=== PATIENT | male | born 1935 | race Caucasian/White ===

== ENCOUNTER → 2017-02-08 | Outpatient (REF) | payer MEDICARE, OTHER ==
[2017-02-08 20:46] LABS: FREE T4 0.98 NG/DL (0.76-1.46)
== END ==
LOC: M LAB REF 16:34
PROVIDERS: ATTEND Internal Medicine Medical Oncology
DX: C43.9 Malignant melanoma of skin, unspecified (principal); Z79.899 Other long term (current) drug therapy

== ENCOUNTER 2017-02-20 12:38 | Inpatient (IN) | payer MEDICARE, OTHER ==
[~2017-02-20] VITALS: Ht 179.1 cm; Wt 95.7 kg
[2017-02-20] MEDS ORDERED: TAMSULOSIN (12:49)
[2017-02-20] MEDS ORDERED: PRED10TA PO (12:49)
[2017-02-20] MEDS ORDERED: ALBU83IN INH (12:49)
[2017-02-20] MEDS ORDERED: methylPREDNISolone INJ 125 MG/2 ML VIAL (J2930) IV ONE (13:15)
[2017-02-20] MEDS: IPRATROPIUM 0.5MG/ALBUTEROL 2.5MG INH SOL UD 3ML (DUONEB)(J7620) NEB PRN ×3 (13:22→13:57)
[2017-02-20 13:27] LABS: BASO % 0.2 % (0.0-1.0); EOS # 0.2 K/mm3 (0.0-0.50); EOS % 1.2 % (0.0-3.0); LARGE UNSTAINED CELL # 0.2 K/mm3 (0.0-0.4); LYMPH # 1.3 K/mm3 (1.5-4.5); LYMPH % 7.3 % (24.0-44.0); MEAN CORPUSCULAR HEMOGLOBIN 30.5 pg (27.0-33.0); MEAN CORPUSCULAR HGB CONC 33.8 g/dl (32.0-36.5); MEAN CORPUSCULAR VOLUME 90.2 fl (80.0-96.0); MONO # 0.9 K/mm3 (0.0-0.8); MONO % 5.6 % (0.0-5.0); NEUTROPHILS # 13.3 K/mm3 (1.8-7.7); NEUTROPHILS % 84.6 % (36.0-66.0); PLATELET COUNT, AUTOMATED 213 k/mm3 (150-450); RED CELL DISTRIBUTION WIDTH 13.4 % (11.5-14.5); WHITE BLOOD COUNT 15.7 K/mm3 (4.0-10.0)
[2017-02-20 13:53] LABS: ANION GAP 8 MEQ/L (8-16); BLOOD UREA NITROGEN 23 MG/DL (7-18); CALCIUM LEVEL 8.3 MG/DL (8.8-10.2); CARBON DIOXIDE LEVEL 24 MEQ/L (21-32); CHLORIDE LEVEL 104 MEQ/L (98-107); GLOMERULAR FILTRATION RATE 51.8 (>35); GLUCOSE, FASTING 107 MG/DL (83-110); SODIUM LEVEL 136 MEQ/L (136-145)
[2017-02-20 13:58] LABS: ALBUMIN/GLOBULIN RATIO 0.77 (1.00-1.93); BILIRUBIN,DIRECT 0.2 MG/DL (0.0-0.2); BILIRUBIN,TOTAL 0.8 MG/DL (0.2-1.0); TOTAL PROTEIN 6.9 GM/DL (6.4-8.2)
--- NOTE | 2017-02-20 14:27 | REP ---
Clinical: Dyspnea. Cough. Technique: PA and lateral. Comparison: 03/02/2013. Findings: Mediastinum and cardiac silhouette are stable. The lung turcios demonstrate diffuse chronic interstitial changes, including COPD and emphysematous disease with bibasilar scarring and chronic right pleuroparenchymal changes. Superimposed acute process cannot be excluded. No pneumothorax. Skeletal structures intact. Impression: Chronic changes related to COPD/emphysematous disease, scattered fibrosis and scarring as well as pleural-based scarring in the right lower hemithorax. Superimposed acute process cannot be excluded. Signed by Chandra Malik MD 02/20/2017 02:18 P
[2017-02-20] MEDS ORDERED: ALBUTEROL SULFATE 2.5 MG/0.5 ML INH NEB SOLN NEB PRN (14:45)
[2017-02-20] MEDS ORDERED: METOCLOPRAMIDE INJ 10MG/2ML VIAL (J2765) IV PRN (14:45)
[2017-02-20] MEDS ORDERED: BISACODYL 10 MG SUPP PR PRN (14:45)
[2017-02-20] MEDS ORDERED: KEYT1SOL IV (15:00)
[2017-02-20] MEDS ORDERED: PROBCAP4 PO (15:00)
[2017-02-20] MEDS ORDERED: PRESCAP6 PO (15:00)
[2017-02-20] MEDS ORDERED: LORA10TA2 PO (15:00)
[2017-02-20] MEDS ORDERED: FLOM5CAP PO (15:00)
[2017-02-20] MEDS ORDERED: GLUCTAB6 PO (15:00)
[2017-02-20] MEDS ORDERED: FISH1000 PO (15:00)
[2017-02-20] MEDS ORDERED: AZITHROMYCIN INJ 500 MG, VIAL MATE ADAPTER 1 EACH in D5W 250 ML IV SCH (15:00)
[2017-02-20] MEDS ORDERED: cefTRIAXone SOD 2 GM in D5W MINI-BAG PLUS 50 ML IV SCH (16:00)
--- NOTE | 2017-02-20 16:40 | REP ---
Clinical: Dyspnea and cough. Findings: Right lower lobe consolidation with air bronchograms is appreciated with associated pleural reaction. Significant mediastinal and hilar adenopathy noted. Advanced chronic COPD and emphysematous changes with biapical and scattered scarring. Thoracic aorta without aneurysm. Heart and pericardium normal for age. Surrounding musculoskeletal structures demonstrate age-related degenerative changes. Limited evaluation of the upper abdomen demonstrates renal hypodensities likely representing cysts. Impression: 1. Moderate right lower lobe consolidation with air bronchograms as well as associated pleural reaction and significant adenopathy. Follow-up to resolution is recommended. Differential diagnosis includes acute pneumonia as well as neoplasm. 2. Advanced COPD and emphysematous changes with biapical and scattered scarring. 3. Renal hypodensities likely representing cysts may be followed by ultrasound. Signed by Chandra Malik MD 02/20/2017 04:32 P
[2017-02-20 17:08] VITALS: BP 140/67
[2017-02-20] MEDS: PANTOPRAZOLE 40MG TAB (PROTONIX) PO SCH (17:22)
--- NOTE | 2017-02-20 20:08 | ECGEPIP ---
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
[2017-02-20] MEDS: ENOXAPARIN 30 MG/0.3 ML SYR (J1650) SC SCH (20:21)
[2017-02-20] MEDS: TAMSULOSIN 0.4 MG CAP PO SCH (20:22)
[2017-02-20] MEDS: methylPREDNISolone INJ 40 MG/1 ML VIAL (J2920) IV SCH (20:22)
[2017-02-20] MEDS: SENOKOT S TAB PO SCH (20:22)
[2017-02-20] MEDS: IPRATROPIUM 0.5MG/ALBUTEROL 2.5MG INH SOL UD 3ML (DUONEB)(J7620) NEB SCH (20:28)
[2017-02-20 22:00] VITALS: BP 130/62
[2017-02-20] MEDS ORDERED: guaiFENesin ER 600 MG TAB PO ONE (22:00)
--- NOTE | 2017-02-20 22:40 | REPUSA ---
Clinical history: Shortness of breath. Comparison: None. Findings: The mediastinum and cardiac silhouette are within normal limits. There is a right lower lob e infiltrate and pleural effusion. The osseous structures and soft tissues are unremarkable. Impression: Right lower lobe infiltrate and pleural effusion.
[2017-02-21] MEDS: IPRATROPIUM 0.5MG/ALBUTEROL 2.5MG INH SOL UD 3ML (DUONEB)(J7620) NEB SCH ×4 (01:18→20:53)
[2017-02-21] MEDS: methylPREDNISolone INJ 40 MG/1 ML VIAL (J2920) IV SCH ×4 (02:03→20:58)
[2017-02-21 06:00] VITALS: BP 132/67
[2017-02-21] MEDS: LACTOBACILLUS ACIDOPHILUS CAP (BACID) PO SCH (08:34)
[2017-02-21] MEDS: AZITHROMYCIN 250 MG TAB PO SCH (08:34)
[2017-02-21] MEDS: PANTOPRAZOLE 40MG TAB (PROTONIX) PO SCH (08:35)
[2017-02-21] MEDS: LORATADINE 10 MG TAB PO SCH (08:35)
[2017-02-21] MEDS: SENOKOT S TAB PO SCH ×2 (08:35→20:59)
[2017-02-21] MEDS: guaiFENesin ER 600 MG TAB PO SCH ×2 (08:35→20:59)
[2017-02-21 09:32] LABS: CALCIUM LEVEL 8.3 MG/DL (8.8-10.2); CREATININE FOR GFR 1.32 MG/DL (0.70-1.30); GLOMERULAR FILTRATION RATE 55.4 (>35); POTASSIUM SERUM 3.8 MEQ/L (3.5-5.1)
[2017-02-21 09:48] LABS: MEAN CORPUSCULAR HEMOGLOBIN 30.3 pg (27.0-33.0); MEAN CORPUSCULAR HGB CONC 32.8 g/dl (32.0-36.5); MEAN CORPUSCULAR VOLUME 92.4 fl (80.0-96.0); RED CELL DISTRIBUTION WIDTH 13.1 % (11.5-14.5); WHITE BLOOD COUNT 14.6 K/mm3 (4.0-10.0)
--- NOTE | 2017-02-21 12:41 | HPE ---
DATE OF ADMISSION: 02/20/2017 PRIMARY CARE PROVIDER: Dr. Nino Rosario ONCOLOGIST: Dr. Janneth Zheng CHIEF COMPLAINT: Increasing shortness of breath and cough for 4 days. PAST MEDICAL HISTORY: 1. 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 2. Chronic obstructive pulmonary disease (COPD), on home oxygen and intermittent steroids. 3. Chronic hypoxic respiratory failure. 4. Benign prostatic hypertrophy (BPH). 5. Seasonal allergies. 6. Hyperlipidemia. 7. Osteoarthritis. HISTORY OF PRESENT ILLNESS: This is an 81-year-old male who is from [place]; however, is up here in [facility] during the summer, who was diagnosed with malignant melanoma in September 2016 and started on , involvement of left axillary lymph node, started on chemotherapy in December 2016 down in [place] and continued with chemotherapy after he moved here under Dr. Janneth Zheng' care. He last got his chemotherapy with Keytruda on 02/15/2017. From 02/16/2017, he started feeling a little congested and short of breath, which worsened over the next 4 days and causing him to require more nebulizers than his usual and causing him to use his oxygen throughout the day. He usually uses it only during the night. Today, he was feeling very tight, congested, difficulty with lots of difficulty in breathing, so came to the emergency room for evaluation. In the emergency department (ED), the patient had chest x-ray done, which showed chronic changes of COPD and emphysema, scattered fibrosis, and scarring in the right lower hemithorax, superimposed acute process could not be ruled out. He also had a white count up to 15.7 and elevated C-reactive protein (CRP) of 25.3. Dr. Janneth Zheng was consulted from the ED, and it was felt that the patient's symptoms could be related to his COPD exacerbation versus a pneumonitis related to Keytruda. So, the patient is being admitted to the hospitalist service for COPD exacerbation versus pneumonitis related to chemotherapy. Past medical history also included chronic kidney disease stage III. Past medical history also includes a right lower lobe lung cancer, status post right lower lobe lobectomy in 2003. PAST SURGICAL HISTORY: 1. Bilateral hip replacements. 2. Surgery for malignant melanoma on the back in September 2016. 3. Right lower lobe lobectomy in 2004 for lung cancer. 4. 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 ALLERGIES: To FORMALDEHYDE. SOCIAL HISTORY: The patient does not smoke, abuse alcohol or recreational drugs. HOME MEDICATIONS: - loratadine 10 mg daily - lactobacillus one capsule by mouth daily - albuterol sulfate nebulizer solution every 4 hours as needed - prednisone 10 mg every other day - Flomax 0.4 mg daily - glucosamine one tablet by mouth twice a day - fish oil 1000 mg capsule twice a day - Keytruda - PreserVision AREDS one capsule by mouth twice a day FAMILY HISTORY: Nothing significant. RADIOLOGY: Chest x-ray as above reviewed. ASSESSMENT AND PLAN: This is an 81-year-old male admitted for chronic obstructive pulmonary disease exacerbation versus pneumonitis related to chemotherapy. PLAN: 1. Chronic obstructive pulmonary disease exacerbation. Will continue with nebulizers with albuterol and ipratropium. Will also give methylprednisone. Will continue with home oxygen. 2. Pneumonitis due to chemotherapy versus pneumonia. Will schedule the patient for a chest CT. Will continue with ceftriaxone and azithromycin for now. 3. Chronic hypoxic respiratory failure. Will continue with home oxygen. 4. Chronic kidney disease stage III. Will monitor creatinine. At base currently. 5. Benign prostatic hypertrophy. Will continue with Flomax. 6. Allergies. Will continue with loratadine. 7. Deep venous thrombosis (DVT) prophylaxis has been ordered. 8. Gastrointestinal (GI) prophylaxis has been ordered. 9. Malignant melanoma. Currently, on chemotherapy. Last dose received on 02/15/2017 with Keytruda. Follows with Dr. Janneth Zheng. No issues at this point.
[2017-02-21 14:00] VITALS: BP 136/62
[2017-02-21] MEDS: cefTRIAXone SOD 1 GM in D5W MINI-BAG PLUS 50 ML IV SCH (14:39)
--- NOTE | 2017-02-21 16:37 | IPNPDOC ---
Subjective Date Seen The patient was seen on 02/21/17. Subjective Chief Complaint/HPI The patient is a 81-year-old male admitted with a reason for visit of Copd Exacerbation. General: Denies: Chills, Night Sweats Constitutional: Denies: Chills, Fever Eyes: Denies: Pain, Vision change ENT: Denies: Head Aches, Ear Pain Skin: Denies: Rash, Lesions Pulmonary: Reports: Dyspnea, Cough Cardiovascular: Denies: Chest Pain, Palpitations Gastrointestinal: Denies: Nausea, Vomiting Genitourinary: Denies: Dysuria, Frequency Hematologic: Denies: Bruising, Bleeding Excessively Objective Physical Examination General Exam: Positive: Alert, Cooperative, No Acute Distress ENT Exam: Positive: Atraumatic, Mucous membr. moist/pink Neck Exam: Negative: JVD Chest Exam: Positive: Wheezing, Diminished, Negative: Rales Heart Exam: Positive: Rate Normal, Normal S1, Normal S2 Abdomen Exam: Positive: Tenderness, Negative: Soft Extremity Exam: Negative: Tenderness, Swelling Assessment /Plan Plan/VTE VTE Prophylaxis Ordered?: Yes Plan Chronic obstructive pulmonary disease exacerbation CT Chest noted Continue with nebulizers with albuterol and ipratropium Cont methylprednisone. Cont Rocephin, Azithromycin Continue with home oxygen. Will continue to monitor the patient's respiratory status Pneumonitis due to chemotherapy versus pneumonia. Continue with ceftriaxone and azithromycin, Solumedrol as ordered Hx of Malignant melanoma s/p 4 round of chemotherapy on 02/15/2017 with Keytruda. Follows with Dr. Janneth Zheng. Chronic kidney disease stage III Serum Cr at Baseline Benign prostatic hypertrophy Continue with Flomax. Allergies Continue with loratadine. Deep venous thrombosis (DVT) prophylaxis SC Lovenox VS, I&O, 24H, Fishbone Vital Signs/I&O Vital Signs Date Time Temp Pulse Resp B/P (MAP) Pulse Ox O2 Delivery O2 Flow Rate FiO2 02/21/17 14:00 98.5 95 22 136/62 (86) 93 Nasal Cannula 1.0 I&O- Last 24 Hours up to 6 AM 02/21/17 06:00 Intake Total 895 ml Output Total 1225 ml Balance -330 ml Laboratory Data 24H LABS Laboratory Tests 2 02/21/17 09:05: Anion Gap 13, Glomerular Filtration Rate 55.4, Blood Urea Nitrogen 28H, Creatinine 1.32H, Sodium Level 141, Potassium Level 3.8, Chloride Level 106, Carbon Dioxide Level 22, Calcium Level 8.3L CBC/BMP Laboratory Tests 02/21/17 09:05 Red Blood Count 3.94 L, Mean Corpuscular Volume 92.4, Mean Corpuscular Hemoglobin 30.3, Mean Corpuscular Hemoglobin Concent 32.8, Red Cell Distribution Width 13.1, Calcium Level 8.3 L Microbiology Microbiology 02/20/17 Blood Culture, Received Pending 02/20/17 Blood Culture - Preliminary, Resulted No growth after 24 hours . All specim... 02/20/17 Gram Stain - Final, Resulted 02/20/17 Sputum Culture, Resulted Pending 02/20/17 Respiratory Virus Panel (PCR) (DIA) - Final, Complete YONATAN STEVENS MD February 21, 2017 16:37
[2017-02-21] MEDS: ENOXAPARIN 30 MG/0.3 ML SYR (J1650) SC SCH (20:59)
[2017-02-21] MEDS: TAMSULOSIN 0.4 MG CAP PO SCH (21:00)
[2017-02-21 22:00] VITALS: BP 132/56
[2017-02-22] MEDS: IPRATROPIUM 0.5MG/ALBUTEROL 2.5MG INH SOL UD 3ML (DUONEB)(J7620) NEB SCH ×4 (01:03→19:11)
[2017-02-22] MEDS: methylPREDNISolone INJ 40 MG/1 ML VIAL (J2920) IV SCH ×3 (02:08→20:13)
[2017-02-22 06:00] VITALS: BP 106/52
[2017-02-22] MEDS: ACETAMINOPHEN TAB 650MG DOSE (2X325MG) PO PRN ×2 (06:44→16:37)
[2017-02-22 07:35] LABS: MEAN CORPUSCULAR HEMOGLOBIN 30.2 pg (27.0-33.0); MEAN CORPUSCULAR HGB CONC 33.2 g/dl (32.0-36.5); RED CELL DISTRIBUTION WIDTH 13.4 % (11.5-14.5); WHITE BLOOD COUNT 20.2 K/mm3 (4.0-10.0)
[2017-02-22 07:51] LABS: ALBUMIN 2.5 GM/DL (3.2-5.2); ALBUMIN/GLOBULIN RATIO 0.58 (1.00-1.93); BILIRUBIN,TOTAL 0.2 MG/DL (0.2-1.0); CALCIUM LEVEL 8.1 MG/DL (8.8-10.2); CREATININE FOR GFR 1.4 MG/DL (0.70-1.30); GLOMERULAR FILTRATION RATE 51.8 (>35); MAGNESIUM LEVEL 2.3 MG/DL (1.8-2.4); POTASSIUM SERUM 4.2 MEQ/L (3.5-5.1); TOTAL PROTEIN 6.8 GM/DL (6.4-8.2)
[2017-02-22] MEDS: guaiFENesin ER 600 MG TAB PO SCH ×2 (08:32→20:14)
[2017-02-22] MEDS: LACTOBACILLUS ACIDOPHILUS CAP (BACID) PO SCH (08:32)
[2017-02-22] MEDS: AZITHROMYCIN 250 MG TAB PO SCH (08:33)
[2017-02-22] MEDS: SENOKOT S TAB PO SCH ×2 (08:33→20:15)
[2017-02-22] MEDS: LORATADINE 10 MG TAB PO SCH (08:33)
[2017-02-22] MEDS: PANTOPRAZOLE 40MG TAB (PROTONIX) PO SCH (08:33)
--- NOTE | 2017-02-22 15:04 | IPNPDOC ---
Text Note Date of Service The patient was seen on 02/22/17. NOTE Subjective: Patient was seen and examined at the bedside. Noted that his breathing was improving, but his cough remained persistent. Objective: Vitals (See below) General: Lying in bed, no acute distress, comfortable, AAOx3 HEENT: NC, AT CVS: RRR, +S1S2 Lungs: Fair air entry b/l, no appreciable wheezing Abdomen: Soft, ND, NT, +BSx4 Extremities: +PPx4, - Edema, - Calf tenderness Assessment and plan: SOB and cough - likely 2/2 Acute COPD exacerbation and Community acquire pneumonia - Physical with no appreciable wheezing noted, remains afebrile - Blood cultures negative, Respiratory panel negative, Sputum culture pending - c/w Ceftriaxone and Azithromycin (Day #2) - c/w Solumedrol; will taper - c/w Duoneb Malignant melanoma - on chemotherapy; s/p 4 rounds with Keytruda - last received on 02/15/2017 - follows with Dr. Janneth Zheng Leukocytosis - likely 2/2 reactive etiology and infectious etiology - c/w treatment for CAP - will start to taper steroids Normocytic anemia - Hg stable CKD3 - Cr at baseline BPH - c/w Flomax Allergies - c/w Loratadine DVT prophylaxis - c/w Lovenox VS,Fishbone, I+O VS, Fishbone, I+O Laboratory Tests 02/22/17 07:13 Red Blood Count 3.72 L, Mean Corpuscular Volume 91.0, Mean Corpuscular Hemoglobin 30.2, Mean Corpuscular Hemoglobin Concent 33.2, Red Cell Distribution Width 13.4, Calcium Level 8.1 L, Aspartate Amino Transf (AST/SGOT) 70 H, Alanine Aminotransferase (ALT/SGPT) 129 H, Alkaline Phosphatase 153 H, Total Bilirubin 0.2 #, Total Protein 6.8, Albumin 2.5 L Vital Signs Date Time Temp Pulse Resp B/P (MAP) Pulse Ox O2 Delivery O2 Flow Rate FiO2 02/22/17 08:30 Room Air 02/22/17 06:00 97.6 84 19 106/52 (70) 93 02/21/17 14:00 1.0 I&O- Last 24 Hours up to 6 AM 02/22/17 06:00 Intake Total 3495 ml Output Total 2375 ml Balance 1120 ml JOI MARTINEZ MD February 22, 2017 15:04
[2017-02-22] MEDS: cefTRIAXone SOD 1 GM in D5W MINI-BAG PLUS 50 ML IV SCH (15:36)
[2017-02-22 16:00] VITALS: BP 132/61
[2017-02-22] MEDS: ENOXAPARIN 30 MG/0.3 ML SYR (J1650) SC SCH (20:14)
[2017-02-22] MEDS: TAMSULOSIN 0.4 MG CAP PO SCH (20:15)
[2017-02-22] MEDS ORDERED: CAPSAICIN 0.025% CR 60 GM TOP PRN (21:45)
[2017-02-22 22:00] VITALS: BP 128/60
[2017-02-23] MEDS: IPRATROPIUM 0.5MG/ALBUTEROL 2.5MG INH SOL UD 3ML (DUONEB)(J7620) NEB SCH ×3 (00:54→14:00)
[2017-02-23 06:00] VITALS: BP 126/60
[2017-02-23 06:28] LABS: MEAN CORPUSCULAR HGB CONC 32.6 g/dl (32.0-36.5); MEAN CORPUSCULAR VOLUME 91.7 fl (80.0-96.0); RED CELL DISTRIBUTION WIDTH 13.3 % (11.5-14.5); WHITE BLOOD COUNT 15.2 K/mm3 (4.0-10.0)
[2017-02-23 06:45] LABS: ALBUMIN 2.6 GM/DL (3.2-5.2); ALBUMIN/GLOBULIN RATIO 0.63 (1.00-1.93); BILIRUBIN,TOTAL 0.3 MG/DL (0.2-1.0); CALCIUM LEVEL 8.2 MG/DL (8.8-10.2); CREATININE FOR GFR 1.39 MG/DL (0.70-1.30); GLOMERULAR FILTRATION RATE 52.2 (>35); MAGNESIUM LEVEL 2.3 MG/DL (1.8-2.4); POTASSIUM SERUM 4.2 MEQ/L (3.5-5.1); TOTAL PROTEIN 6.7 GM/DL (6.4-8.2)
[2017-02-23] MEDS: methylPREDNISolone INJ 40 MG/1 ML VIAL (J2920) IV SCH (08:23)
[2017-02-23] MEDS: PANTOPRAZOLE 40MG TAB (PROTONIX) PO SCH (08:24)
[2017-02-23] MEDS: LORATADINE 10 MG TAB PO SCH (08:24)
[2017-02-23] MEDS: LACTOBACILLUS ACIDOPHILUS CAP (BACID) PO SCH (08:24)
[2017-02-23] MEDS: guaiFENesin ER 600 MG TAB PO SCH (08:24)
[2017-02-23] MEDS: SENOKOT S TAB PO SCH (08:24)
[2017-02-23] MEDS: AZITHROMYCIN 250 MG TAB PO SCH (08:24)
--- NOTE | 2017-02-23 11:54 | IPNPDOC ---
Text Note Date of Service The patient was seen on 02/23/17. NOTE Subjective: Patient was seen and examined at the bedside. He reports that his breathing has significantly improved and is now at baseline. He notes that his cough has improved and is able to remove his secretions. He denies any abdominal pain, nausea or vomiting at this time. He noted that earlier this admission he did have RUQ abdominal pain. Objective: Vitals (See below) General: Lying in bed, no acute distress, comfortable, AAOx3 HEENT: NC, AT CVS: RRR, +S1S2 Lungs: Fair air entry b/l, no appreciable wheezing Abdomen: Soft, ND, NT, +BSx4 Extremities: +PPx4, - Edema, - Calf tenderness Assessment and plan: SOB and cough - likely 2/2 Acute COPD exacerbation and Community acquire pneumonia - Physical with no appreciable wheezing noted, remains afebrile - Blood cultures negative, Respiratory panel negative, Sputum culture pending - c/w Ceftriaxone and Azithromycin (Day #3) - d/c Solumedrol; Wall start Prednisone and will taper on discharge - c/w Duoneb Malignant melanoma - on chemotherapy; s/p 4 rounds with Keytruda - last received on 02/15/2017 - follows with Dr. Janneth Zheng Leukocytosis - likely 2/2 reactive etiology and infectious etiology - c/w treatment for CAP - will start to taper steroids Elevated liver enzymes - possibly 2/2 billiary etiology, possibly 2/2 medications (Corticosteroids) - initially had symptoms of RUQ pain, currently is asymptomatic - Elevated alkaline phosphatase and GGT - Will get US abdomen to evaluate - If negative; will DC solumedrol and give tapering dose of steroids Normocytic anemia - Hg stable CKD3 - Cr at baseline BPH - c/w Flomax Allergies - c/w Loratadine DVT prophylaxis - c/w Lovenox VS,Fishbone, I+O VS, Fishbone, I+O Laboratory Tests 02/23/17 06:10 Red Blood Count 4.06 L, Mean Corpuscular Volume 91.7, Mean Corpuscular Hemoglobin 30.0, Mean Corpuscular Hemoglobin Concent 32.6, Red Cell Distribution Width 13.3, Calcium Level 8.2 L, Aspartate Amino Transf (AST/SGOT) 78 H, Alanine Aminotransferase (ALT/SGPT) 184 H, Gamma Glutamyl Transpeptidase 155 H, Alkaline Phosphatase 146 H, Total Bilirubin 0.3, Total Protein 6.7, Albumin 2.6 L Vital Signs Date Time Temp Pulse Resp B/P (MAP) Pulse Ox O2 Delivery O2 Flow Rate FiO2 02/23/17 06:00 97.8 84 19 126/60 (82) 92 Room Air 02/21/17 14:00 1.0 I&O- Last 24 Hours up to 6 AM 02/23/17 06:00 Intake Total 2465 ml Output Total 3305 ml Balance -840 ml JOI MARTINEZ MD February 23, 2017 11:54
[2017-02-23] MEDS ORDERED: PRED10TA PO ×2 (12:00)
[2017-02-23] MEDS ORDERED: GUAI60TA PO (12:00)
[2017-02-23] MEDS ORDERED: AZIT500T2 PO (12:00)
[2017-02-23] MEDS ORDERED: CEFD1CAP8 PO (12:00)
[2017-02-23 14:00] VITALS: BP 133/61
--- NOTE | 2017-02-23 14:57 | REP ---
Clinical: Right upper quadrant abdominal pain. Technique: Mandujano scale ultrasound using curved array transducer. Findings: The liver and pancreas are normal in contour, size, and echogenicity without focal hepatic or pancreatic lesions identified. The gallbladder is normal without gallstones, wall thickening or pericholecystic fluid; 4 mm incidental benign appearing polyp noted. No biliary ductal dilatation is appreciated, and the common bile duct measures 2.4 mm diameter. The right kidney is normal in reniform shape without hydronephrosis and measures 11.3 x 5.2 x 4.9 cm. No ascites. Visualized portions of the abdominal aorta normal. Impression: Normal right upper quadrant and gallbladder abdominal ultrasound. Signed by Chandra Malik MD 02/23/2017 02:48 P
[2017-02-23] MEDS: cefTRIAXone SOD 1 GM in D5W MINI-BAG PLUS 50 ML IV SCH (15:38)
--- NOTE | 2017-02-23 16:49 | DSES ---
DATE OF ADMISSION: 02/20/2017 DATE OF DISCHARGE: 02/23/2017 PRIMARY CARE PROVIDER: Nino Rosario MD CONSULTING PHYSICIAN: None. CONDITION ON DISCHARGE: Stable. FINAL DIAGNOSIS: Shortness of breath and cough, likely secondary to acute chronic obstructive pulmonary disease (COPD) exacerbation and community-acquired pneumonia. PROCEDURES: None. HISTORY OF PRESENT ILLNESS: The patient is an 81-year-old male with a past medical history of malignant melanoma on his back, currently on chemotherapy with Keytruda, follows with Dr. Janneth Zheng as an outpatient, chronic obstructive pulmonary disease (COPD) with home oxygen and intermittent steroids, chronic hypoxic respiratory failure, benign prostatic hypertrophy (BPH), seasonal allergies, dyslipidemia, osteoarthritis, who presented to the emergency room with complaints of congestion and shortness of breath which is worsening over the last four days. He used increased amount of nebulizers without improvement. In the emergency room, the patient received imaging that showed chronic changes of COPD, emphysema, scattered fibrosis, and scarring in the right lower hemithorax. A superimposed acute process could not be completely ruled out. The patient was admitted for possible community-acquired pneumonia and treated for a COPD exacerbation. HOSPITAL COURSE: 1. Shortness of breath and cough, likely secondary to acute chronic obstructive pulmonary disease (COPD) exacerbation and community-acquired pneumonia with no appreciable wheezing noted. Remained afebrile. Blood cultures negative. Respiratory panel negative. Sputum culture is pending. The patient was put on ceftriaxone and azithromycin for three days duration while he was inpatient. Upon discharge, he is being discharged home with cefdinir and azithromycin. He is status post Solu-Medrol during his hospital course and this was transitioned to prednisone upon discharge. 2. Malignant melanoma, on chemotherapy, status post four runs of Keytruda, last received on 02/14/2017. He follows with Dr. Janneth Zheng as an outpatient. 3. Leukocytosis, secondary to reactive etiology from steroids. Has begun to trend down. We will begin to taper steroids. 4. Elevated liver enzymes, possibly secondary to biliary etiology, possibly secondary to medications. Initially had symptoms of right upper quadrant pain. Currently, he is asymptomatic. Elevated alkaline phosphatase and gamma-glutamyltransferase (GGT) were noted. Ultrasound of the abdomen was completed which was negative for any acute cholecystitis. There was no evidence of gallstones on ultrasound as well. The patient's liver enzymes were advised to be followed up with his primary care provider to get a repeat comprehensive metabolic panel (CMP). 5. Normocytic anemia. Hemoglobin is stable. 6. Chronic kidney disease (CKD), stage III. Creatinine is at baseline. 7. Benign prostatic hypertrophy (BPH). Continue with Flomax. 8. Allergies. Continue with loratadine. 9. Deep vein thrombosis (DVT) prophylaxis. Continue with Lovenox. DISCHARGE MEDICATIONS: - albuterol one nebulizer inhaled four times a day as needed for shortness of breath - fish oil one capsule by mouth twice a day - glucosamine one tablet by mouth twice a day - Keytruda as directed - lactobacillus one capsule by mouth daily - loratadine 10 mg by mouth daily - PreserVision one capsule by mouth twice a day - tamsulosin 0.4 mg by mouth at bedtime New medications prescribed include: - prednisone on a tapering basis until he is back to his baseline of 10 mg every other day - azithromycin 500 mg by mouth daily for five days - cefdinir 300 mg by mouth twice a day for five days - guaifenesin 1200 mg by mouth twice a day for seven days DISCHARGE INSTRUCTIONS: The patient has been advised to followup with his primary care provider. He has been advised to call to confirm/schedule appointment. He has been advised to remain compliant with treatment plan and medications and return to the emergency room if he experiences any problems. TIME SPENT ON DISCHARGE: 35 minutes.
== END 2017-02-23 16:44 | disposition home or self-care (01) | DRG 190 ==
LOC: M ED 14:23 → M ED INP 14:33 → M MSPAV 17:04
PROVIDERS: ADMIT Internal Medicine Nephrology; ATTEND Internal Medicine
DX: J44.1 Chronic obstructive pulmonary disease with (acute) exacerbation (principal); J18.9 Pneumonia, unspecified organism; J96.11 Chronic respiratory failure with hypoxia; C49.6 Malignant neoplasm of connective and soft tissue of trunk, unspecified; N40.0 Benign prostatic hyperplasia without lower urinary tract symptoms; E78.5 Hyperlipidemia, unspecified; M19.90 Unspecified osteoarthritis, unspecified site; J84.10 Pulmonary fibrosis, unspecified; N18.3 Chronic kidney disease, stage 3 (moderate); Z79.899 Other long term (current) drug therapy; D64.9 Anemia, unspecified; Z88.8 Allergy status to other drugs, medicaments and biological substances; Z96.641 Presence of right artificial hip joint; Z96.642 Presence of left artificial hip joint; Z79.52 Long term (current) use of systemic steroids

== ENCOUNTER → 2017-03-15 | Outpatient (REF) | payer MEDICARE, OTHER ==
[~2017-03-15] MED LIST: ALBU83IN INH; AZIT500T2 PO; CEFD1CAP8 PO; FISH1000 PO; FLOM5CAP PO; GLUCTAB6 PO; GUAI60TA PO; KEYT1SOL IV; LORA10TA2 PO; PRED10TA PO; PRESCAP6 PO; PROBCAP4 PO; TAMSULOSIN
== END ==
LOC: M LAB REF 16:18
PROVIDERS: ATTEND Internal Medicine Medical Oncology
DX: C90.00 Multiple myeloma not having achieved remission (principal); H53.2 Diplopia

== ENCOUNTER → 2017-03-23 | Outpatient (CLI) | payer MEDICARE, OTHER | LOC: M PLARAD 10:35 | PROVIDERS: ATTEND Internal Medicine Medical Oncology | DX: C43.9 Malignant melanoma of skin, unspecified (principal); J44.9 Chronic obstructive pulmonary disease, unspecified; Z99.81 Dependence on supplemental oxygen | CPT/HCPCS: 78816; A9552 ==

== ENCOUNTER → 2017-04-06 | Outpatient (REF) | payer MEDICARE, OTHER ==
[~2017-04-06] MED LIST changes: -GUAI60TA PO; +MUCI600T31 PO; -PRED10TA PO; +PRED10TA2 PO
[2017-04-08 00:15] LABS: Lyme Disease IgG/IgM Antibodie <0.91 ISR (0.00-0.90); Lyme Disease IgM Ab Quantitati <0.80 index (0.00-0.79)
== END ==
LOC: M LAB REF 12:31
PROVIDERS: ATTEND Internal Medicine Medical Oncology
DX: Z11.8 Encounter for screening for other infectious and parasitic diseases (principal)

== ENCOUNTER → 2017-05-17 | Outpatient (REF) | payer MEDICARE, OTHER | LOC: M LAB REF 16:37 | PROVIDERS: ATTEND Internal Medicine Medical Oncology | DX: C43.9 Malignant melanoma of skin, unspecified (principal) ==

== ENCOUNTER → 2017-06-21 | Outpatient (CLI) | payer MEDICARE, OTHER ==
--- NOTE | 2017-06-22 06:28 | REP ---
PET/CT: History: Restaging metastatic melanoma. Patient on Keytruda. Comparisons: Comparison PET/CT study March 23, 2017. TECHNIQUE: 1 hour five minutes following the intravenous injection of a 8.8 mCi dose of F-18 FDG, three-dimensional PET scintigraphy is acquired from the skull base to the proximal thighs. Triplanar noncontrast CT scanning is acquired through the same anatomic range for attenuation correction, and image registration with scan parameters optimized to minimize radiation exposure to the patient. PET scintigraphy and CT datasets were fused and displayed on a workstation with multiplanar and projection display capability. PET/CT Findings: There is persistent hypermetabolic uptake in the cavitary nodular opacity in the right lung apex with maximum standard uptake value today at 4.2. The previously noted pleural parenchymal hypermetabolic uptake focus in the right apex is not hypermetabolic. Maximum standard uptake value 1.2 . The previously noted nodular focus of hypermetabolic uptake and soft tissue density in the left lower lobe is no longer apparent. There is some non-hypermetabolic pleural uptake posteriorly on the right, maximum standard uptake value 2.1. At the time of the March study, there was an infiltrate and some pleural thickening here. These changes have improved. There is a soft tissue nodular density just above the right diaphragm in the right lower lobe. This appears stable from comparison PET/CT images October 14, 2016. It is obscured by the infiltrate on the CT images from January and March 2017. There is no discernible FDG accumulation. No abnormal hypermetabolic uptake is seen within the abdomen or pelvis. No abnormal lower extremity hypermetabolic uptake is seen. Head and neck soft tissues are unremarkable. Impression: There is one remaining focus of hypermetabolic uptake in the right upper lobe with maximum standard uptake value 4.2. Signed by Pradeep De León MD 06/22/2017 09:09 A
== END ==
LOC: M PLARAD 12:32
PROVIDERS: ATTEND Internal Medicine Medical Oncology
DX: C43.59 Malignant melanoma of other part of trunk (principal)
CPT/HCPCS: 78815; A9552

== ENCOUNTER → 2017-06-28 | Outpatient (REF) | payer MEDICARE, OTHER | LOC: M LAB REF 17:35 | PROVIDERS: ATTEND Internal Medicine Medical Oncology | DX: C43.59 Malignant melanoma of other part of trunk (principal) ==

== ENCOUNTER → 2017-07-19 | Outpatient (REF) | payer MEDICARE, OTHER | LOC: M LAB REF 17:17 | PROVIDERS: ATTEND Internal Medicine Medical Oncology | DX: C34.90 Malignant neoplasm of unspecified part of unspecified bronchus or lung (principal) ==

== ENCOUNTER → 2019-05-25 | Outpatient (CLI) | payer MEDICARE, OTHER ==
[~2019-05-25] MED LIST changes: -AZIT500T2 PO; +AZIT500T5 PO; +BROV15NE INH; +BUDE2SUS3; +FLOM0.4C39 PO; -FLOM5CAP PO; +GASTROGRAFIN SOLUTION 30ML (Q9963) As Ordered ONE; +ISOVUE-370 76% 100ML VIAL (Q9967) As Ordered ONE; +LEVO500T3 PO; +LORA-243 PO; -LORA10TA2 PO; +LUTE20CA PO; +PRED10PA PO; +PROBCAP14 PO
--- NOTE | 2019-05-25 16:25 | REP ---
CT of the chest without IV contrast: Comparison is 06/08/2018. There is a focal zone of parenchymal scarring superomedially in the right upper lobe. On the study today there is a zone of parenchymal scarring appears diffusely thickened compared to the prior study. In addition there is a new 1.7 cm nodule within the zone of scarring at its medial margin interposed between the scarring and the superior mediastinum as an interval change. There is a stable focal curvilinear scarring in the left upper lobe. There are bulla replacing the lung parenchyma diffusely bilaterally, unchanged. On the prior study there was an infiltrate in the anterior basal, lateral basal and posterior basal segments of the right lower lobe, accompanied by small right pleural effusion. The infiltrate and pleural effusion have resolved on the study today. There is a stable 9 mm nodule posteromedial to the dome of the liver on image 76, unchanged. There is a 15 mm right hilar node. This measured 20 mm previously. There are pretracheal and aorticopulmonic window nodes measuring up to 10 mm. The measured up to 12 mm previously. The thoracic aorta is unremarkable. Cardiac size is normal. There is pericardial thickening versus small pericardial effusion measuring 6 ml in depth anterolaterally on the right. This is not significantly changed. No lytic, blastic or destructive skeletal changes are identified. Impression: There is a new right upper lobe lung nodule at the medial aspect of the right upper lobe parenchymal scar interposed between the scar and superior mediastinum. There is right hilar and mediastinal adenopathy appears to have slightly decreased in size. There are extensive bulla throughout the lung turcios bilaterally. There is a stable left lower lobe lung nodule. The previous left lower lobe infiltrate and pleural effusion have resolved. There are numerous bulla replacing the lung parenchyma. Electronically Signed by Saurabh De Los Santos MD 05/25/2019 04:16 P
--- NOTE | 2019-05-25 16:36 | REP ---
The abdomen and pelvis with IV and oral contrast: There are no comparisons. The hepatic parenchyma, gallbladder, pancreas, spleen, adrenals, and kidneys are unremarkable except for Bosniak type 1 renal cortical cysts, the largest in the upper pole of the left kidney measuring 1.2 cm. The abdominal aorta is unremarkable. There is no retroperitoneal adenopathy or mass. There are multiple diverticula in the descending colon. There is no evidence of diverticulitis. The bowel and mesentery are otherwise unremarkable. Pelvis: The appendix is unremarkable. There is no adenopathy or ascites. There are bilateral hip arthroplasties. There are no lytic, blastic or destructive skeletal changes. There is degenerative disc disease in the lumbar spine. Impression: There is no evidence of adenopathy or metastatic disease. There is descending colon diverticulosis without diverticulitis. There are bilateral hip arthroplasties. Electronically Signed by Saurabh De Los Santos MD 05/25/2019 04:27 P
== END ==
LOC: M RAD 13:42
PROVIDERS: ATTEND Internal Medicine Medical Oncology
DX: C34.90 Malignant neoplasm of unspecified part of unspecified bronchus or lung (principal)
CPT/HCPCS: 36415; 71260; 74177; 80053; 85027; Q9963; Q9967